=== PATIENT | male | born 1950 | race Caucasian/White ===

== ENCOUNTER 2017-02-12 08:29 | Inpatient (IN) | payer MEDICARE ==
[2017-02-12] MEDS ORDERED: MAGNESIUM SULFATE-D5W PMX 1 GM in DEXTROSE/WATER 1 100ML.BAG IVPB ONE (10:38)
--- NOTE | 2017-02-12 11:12 | XR ---
EXAMINATION TYPE: XR chest 2V DATE OF EXAM: 02/12/2017 COMPARISON: 04/26/2013 INDICATION: Tykosyn loading protocol TECHNIQUE: Frontal and lateral views of the chest are obtained. FINDINGS: The heart size is normal. The pulmonary vasculature is normal. The lungs are clear. IMPRESSION: 1. No acute pulmonary process.
[2017-02-12 11:36] LABS: Anion Gap 8 mmol/L; Blood Urea Nitrogen 21 mg/dL (9-20); Calcium 9.5 mg/dL (8.4-10.2); Carbon Dioxide 28 mmol/L (22-30); Chloride 107 mmol/L (98-107); Glucose 80 mg/dL (74-99); Magnesium 2.2 mg/dL (1.6-2.3); Non-African American GFR(MDRD) >60 (>60 ml/min/1.73 sqM); Sodium 143 mmol/L (137-145)
[2017-02-12 11:36] LABS: INR 1.1 (<1.2); Prothrombin Time 10.8 sec (9.0-12.0)
[2017-02-12 12:00] VITALS: BMI 31.8
--- NOTE | 2017-02-12 12:46 | CONS ---
This is a 66-year-old male patient of Dr. Dusty Ty and Dr. Graff who has symptomatic atrial fibrillation. He has been complaining of increasing tiredness and fatigue but in the last few months, increasing shortness of breath with exertion. He is rate controlled. His resting heart rate is about 60 beats a minute. He denies any chest discomfort. No dizziness, lightheadedness, loss of consciousness. REVIEW OF SYSTEMS: No fever, chills, rigors or cough or expectoration. No nausea or vomiting, hematuria, dysuria, stroke, seizures, skin lesions or musculoskeletal complaints. PAST HISTORY: Atrial fibrillation, dyslipidemia, hypertension, coronary artery disease, previously with reduced left ventricular ejection fraction of about 36% . 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 More recently his cardiac catheterization showed 100% mid RCA. He has mild disease in the LAD and circumflex. His left ventricular ejection fraction by coronary angiography in 2016 was about 45%. On examination, his blood pressure is 129/80 mmHg. Pulse rate is 64 beats a minute irregular. Afebrile. 97.3 degrees. Respirations are normal. Head and neck examination is normal. Heart sounds S1, S2 normal but no murmurs. No gallops. Irregular rhythm noted. Breath sounds are reduced bilaterally with no rhonchi, no crackles. Abdomen soft and nontender. Extremities warm and no edema. He has no JVD. IMPRESSION: 1. Persistent symptomatic atrial fibrillation with shortness of breath on exertion despite adequate rate control. 2. History of coronary artery disease, chronically occluded RCA, mild ischemic cardiomyopathy, ejection fraction about 45%. 3. History of VT ablation in 2006. 4. History of SVT ablation a few years back. Both ablations successful. 5. History of hypertension and dyslipidemia. SUGGEST: Admit to the hospital for initiation of dofetilide as an inpatient. His medication list was reviewed and includes Xarelto 20 mg po daily for anticoagulation, Lisinopril 10 mg daily, Isosorbide 30 mg daily, Atorvastatin 80 mg daily and Atenolol 25 mg twice daily. He is not on any medications that interact with dofetilide. his labs are reviewed, magnesium 2.2, potassium 5.0. Sodium 143. BUN 21, creatinine 1.14. His 12 lead ECG at baseline shows absolute QT interval of less than 420 milliseconds, narrow QRS. PLAN: 1. Initiate dofetilide based on creatinine clearance, this will be calculated. 2. Follow with dofetilide protocol. 3. Continue home medications. 4. Electrical cardioversion possibly on Sunday. MTDD
[2017-02-12] MEDS ORDERED: ATENOLOL 25 MG TAB PO SCH (16:00)
[2017-02-12] MEDS: PANTOPRAZOLE 40 MG TABLET PO SCH (17:52)
[2017-02-12] MEDS ORDERED: DOFETILIDE 500 MCG CAP PO ONE (18:00)
[2017-02-12] MEDS: ATORVASTATIN 80 MG TAB PO SCH (20:41)
[2017-02-12] MEDS: ATENOLOL 25 MG TAB PO SCH (21:36)
[2017-02-13] MEDS ORDERED: DOFETILIDE 500 MCG CAP PO ONE ×2 (06:00→18:00)
[2017-02-13 06:49] LABS: Anion Gap 9 mmol/L; Blood Urea Nitrogen 19 mg/dL (9-20); Calcium 8.9 mg/dL (8.4-10.2); Carbon Dioxide 24 mmol/L (22-30); Chloride 110 mmol/L (98-107); Glucose 96 mg/dL (74-99); Magnesium 2.1 mg/dL (1.6-2.3); Non-African American GFR(MDRD) >60 (>60 ml/min/1.73 sqM); Potassium 4.1 mmol/L (3.5-5.1); Sodium 143 mmol/L (137-145)
[2017-02-13] MEDS: ATENOLOL 25 MG TAB PO SCH ×2 (08:54→19:55)
[2017-02-13] MEDS: LISINOPRIL 10 MG TAB PO SCH (08:54)
[2017-02-13] MEDS: RIVAROXABAN 10 MG TAB PO SCH (08:54)
[2017-02-13] MEDS: ISOSORBIDE MONONITRATE ER 30 MG TAB.ER.24H PO SCH (08:55)
--- NOTE | 2017-02-13 09:14 | P.PN ---
Subjective Patient is doing well and he is ablating the hallways. His heart rates are in the 60s and 70s and regular. He is afebrile 97.2F he denies any undue shortness of breath he is a vague sensation in his chest but this is constant he does not have any angina like symptoms no dizziness no lightheadedness On examination her vitals are stable heart sounds are normal but irregular no murmurs or gallops, sounds are clear no rhonchi no crackles him a abdomen is soft nontender, extend is warm no edema, no JVD Impression Persistent symptomatic atrial fibrillation with shortness of breath with exertion tiredness and fatigue Coronary artery disease with chronically occluded RCA and mild ischemic cardio myopathy with class I heart failure symptoms History of ventricular tachycardia status post ablation greater than 10 years back 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 No significant increase from baseline Plan continue dofetilide 500 g twice daily and follow dofetilide protocol continue anticoagulation and if he does not convert by morning we will proceed with electrical cardioversion Objective - Vital Signs Vital signs: Vital Signs Temp 97.2 F L 02/13/17 04:00 Pulse 63 02/13/17 04:00 Resp 16 02/13/17 04:00 BP 127/72 02/13/17 04:00 Pulse Ox 95 02/13/17 04:00 Intake & Output 02/12/17 02/13/17 02/13/17 18:59 06:59 18:59 Intake Total 600 180 Balance 600 180 Weight 92.3 kg 92.6 kg Intake: Intake, IV Titration 0 Amount Magnesium Sulfate-D5w Pmx 0 1 gm In Dextrose/Water 1 100ml.bag @ 100 mls/hr IVPB ONCE ONE Rx#: [id number] Oral 600 180 Other: Voiding Method Toilet Urinal # Voids 1 - Labs CBC & Chem 7: 02/13/17 06:13 Labs: Abnormal Lab Results - Last 24 Hours (Table) 02/12/17 02/13/17 Range/Units 11:15 06:13 Chloride 110 H (98-107) mmol/L BUN 21 H (9-20) mg/dL
--- NOTE | 2017-02-13 14:43 | CDI ---
In responding to this query, please exercise your independent professional judgment. The [facility] Coding Staff and Clinical Documentation Specialists appreciate your assistance in clarifying documentation, maintaining compliance with coding guidelines, accurately documenting patients condition and capturing severity of illness. The fact that a question is asked does not imply that any particular answer is desired or expected. Communication forms are a method of clarifying documentation and are not made part of the Legal Health Record. Thank you in advance for your clarification. Last Revision, April 2015 Mariusz [place] [address] [place] [address] Documentation Clarification Form Date: 02/13/2017 2:38:00 PM From: Emily Aldrich, CCS, CCDS Admit Date: 02/12/2017 8:29:00 AM Patient Name: Pool Hernandes Visit Number: [id number] Discharge Date: Dr. Primo Stuart: Atrial fibrillation is documented in the cardiology consult and also the cardiology progress note, admitted for Tikosyn, possible cardioversion. History/Risk Factors: CAD, Ischemic cardiomyopathy with class I heart failure symptoms, V tachy status post ablations. Clinical Indicators: Heart rates in 60s - 70s, regular, c/o SOB with exertion. Treatment: Tikosyn loading, possible cardioversion if patient does not convert. In your professional opinion, can you please clarify the type of atrial fibrillation, if known? Chronic/Permanent Paroxysmal Persistent Other, please specify Unable to determine Please document in your progress notes and discharge summary in order to capture severity of illness and risk of mortality. Include clinical findings that support your diagnosis. FYI: Press F11 to launch patient chart Emily Aldrich, it would help if you would read my consult note. The answer lies in my consult note impression as well as my progress note thank you Please remove this query thank you Dr. Narciso FOSTER
[2017-02-13] MEDS: PANTOPRAZOLE 40 MG TABLET PO SCH (18:34)
[2017-02-13] MEDS: ATORVASTATIN 80 MG TAB PO SCH (19:55)
[2017-02-14] MEDS ORDERED: DOFETILIDE 500 MCG CAP PO ONE ×2 (06:00→18:00)
[2017-02-14 06:59] LABS: Anion Gap 10 mmol/L; Blood Urea Nitrogen 20 mg/dL (9-20); Calcium 9.2 mg/dL (8.4-10.2); Carbon Dioxide 23 mmol/L (22-30); Chloride 110 mmol/L (98-107); Glucose 96 mg/dL (74-99); Magnesium 2.2 mg/dL (1.6-2.3); Non-African American GFR(MDRD) >60 (>60 ml/min/1.73 sqM); Potassium 4.3 mmol/L (3.5-5.1); Sodium 143 mmol/L (137-145)
[2017-02-14] MEDS: RIVAROXABAN 10 MG TAB PO SCH (09:09)
[2017-02-14] MEDS: ATENOLOL 25 MG TAB PO SCH ×2 (09:09→19:56)
[2017-02-14] MEDS: LISINOPRIL 10 MG TAB PO SCH (09:09)
[2017-02-14] MEDS: ISOSORBIDE MONONITRATE ER 30 MG TAB.ER.24H PO SCH (09:09)
--- NOTE | 2017-02-14 11:51 | P.PN ---
Subjective Patient is doing well. He is ablating the hallways no shortness of breath no dizziness lightheadedness his atrial fibrillation is rate controlled. He is receiving dofetilide 500 g every 12 hours. QT interval is stable potassium and magnesium and renal functions are stable and within normal limits No chest discomfort dizziness lightheadedness On examination Blood pressure is normal heart rate 7 the normal range. 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 Discussed the patient 500 g of dofetilide tonightTwelve-lead ECG reviewed and QT interval of less than 440 ms absolute. I don't see this atrial fibrillation organizing on dofetilide. Renal function is stable potassium is normal magnesium is normal. We will continue dofetilide 500 g and this was discussed with his nurse Diagnosis symptomatic persistent atrial fibrillation Objective - Vital Signs Vital signs: Vital Signs Temp 96.8 F L 02/14/17 04:00 Pulse 97 02/14/17 04:00 Resp 18 02/14/17 04:00 BP 137/68 02/14/17 04:00 Pulse Ox 96 02/14/17 04:00 Intake & Output 02/13/17 02/14/17 02/14/17 18:59 06:59 18:59 Intake Total 1016 Balance 1016 Weight 90.7 kg Intake: Intake, IV Titration 0 Amount Magnesium Sulfate-D5w Pmx 0 1 gm In Dextrose/Water 1 100ml.bag @ 100 mls/hr IVPB ONCE ONE Rx#: [id number] Oral 1016 Other: Voiding Method Toilet Toilet Urinal Urinal # Voids 2 1 - Labs CBC & Chem 7: 02/14/17 06:10 Labs: Abnormal Lab Results - Last 24 Hours (Table) 02/14/17 Range/Units 06:10 Chloride 110 H (98-107) mmol/L
[2017-02-14] MEDS: PANTOPRAZOLE 40 MG TABLET PO SCH (17:54)
[2017-02-14] MEDS: ATORVASTATIN 80 MG TAB PO SCH (19:57)
[2017-02-15] MEDS: ATENOLOL 25 MG TAB PO SCH ×2 (05:59→20:49)
[2017-02-15] MEDS: ISOSORBIDE MONONITRATE ER 30 MG TAB.ER.24H PO SCH (05:59)
[2017-02-15] MEDS: RIVAROXABAN 10 MG TAB PO SCH (05:59)
[2017-02-15] MEDS: LISINOPRIL 10 MG TAB PO SCH (05:59)
[2017-02-15] MEDS ORDERED: DOFETILIDE 500 MCG CAP PO ONE (06:00)
[2017-02-15 06:41] LABS: Anion Gap 9 mmol/L; Calcium 8.9 mg/dL (8.4-10.2); Carbon Dioxide 26 mmol/L (22-30); Chloride 108 mmol/L (98-107); Glucose 103 mg/dL (74-99); Non-African American GFR(MDRD) 59 (>60 ml/min/1.73 sqM); Sodium 143 mmol/L (137-145)
[2017-02-15 06:51] LABS: Blood Urea Nitrogen 22 mg/dL (9-20); Magnesium 2.2 mg/dL (1.6-2.3); Potassium 4.7 mmol/L (3.5-5.1)
[2017-02-15] MEDS ORDERED: LACTATED RINGERS 1,000 ML IV ONE ×2 (09:44)
[2017-02-15] MEDS ORDERED: MIDAZOLAM 2 MG/2 ML VIAL IVP ONE (10:13)
[2017-02-15] MEDS ORDERED: PROPOFOL 10 MG/ML 20 ML VIAL IV ONE (10:19)
--- NOTE | 2017-02-15 10:52 | P.PCN ---
Preoperative Diagnosis: Procedure Electrical cardioversion for persistent symptomatic atrial fibrillation, on dofetilide 500 g twice daily Indication for the procedure Symptomatic persistent atrial fibrillation Ischemic cardio myopathy left ventricular ejection fraction about 45% Coronary artery disease chronically occluded RCA Procedure details Successful electrical cardioversion with 360 J biphasic shock in the AP configuration Patient converted to sinus rhythm Post cardioversion PACs and heart rates in the mid to high 40s Twelve-lead ECG postprocedure Sinus rhythm heart rate in the high 40s, absolute QT interval of 520 ms on dofetilide 500 g twice daily Plan Reduce dofetilide to 250 g twice daily Monitor QT interval Monitor heart rates on atenolol 25 mg twice daily Postoperative Diagnosis: Procedure(s) Performed: Implants: Indications for Procedure: Operative Findings: Description of Procedure:
[2017-02-15] MEDS ORDERED: MAGNESIUM SULFATE-D5W PMX 1 GM in DEXTROSE/WATER 1 100ML.BAG IVPB ONE (11:03)
[2017-02-15] MEDS: PANTOPRAZOLE 40 MG TABLET PO SCH (17:17)
[2017-02-15] MEDS: DOFETILIDE 250 MCG CAP PO SCH (17:17)
[2017-02-15] MEDS: ATORVASTATIN 80 MG TAB PO SCH (20:48)
[2017-02-16] MEDS: DOFETILIDE 250 MCG CAP PO SCH ×2 (06:28→17:58)
[2017-02-16 06:55] LABS: Anion Gap 7 mmol/L; Blood Urea Nitrogen 22 mg/dL (9-20); Calcium 8.9 mg/dL (8.4-10.2); Carbon Dioxide 27 mmol/L (22-30); Chloride 108 mmol/L (98-107); Glucose 111 mg/dL (74-99); Magnesium 2.3 mg/dL (1.6-2.3); Non-African American GFR(MDRD) 55 (>60 ml/min/1.73 sqM); Potassium 4.5 mmol/L (3.5-5.1); Sodium 142 mmol/L (137-145)
[2017-02-16] MEDS: ATENOLOL 25 MG TAB PO SCH ×2 (08:25→22:09)
[2017-02-16] MEDS: ISOSORBIDE MONONITRATE ER 30 MG TAB.ER.24H PO SCH (08:25)
[2017-02-16] MEDS: RIVAROXABAN 10 MG TAB PO SCH (08:25)
[2017-02-16] MEDS: LISINOPRIL 10 MG TAB PO SCH (08:26)
--- NOTE | 2017-02-16 14:29 | P.PN ---
Subjective Patient is doing well. No chest discomfort no dizziness lightheadedness he maintains sinus rhythm with placed telemetry ECG showed that his QT interval is less than 480 ms, absolute no arrhythmias heart rates in the 50s he is afebrile 96.9F blood pressure 120/80 143/77 mmHg normal respirations. Heart sounds are normal regular no murmurs or gallops. Breath sounds are normal no rhonchi no crackles abdomen soft nontender. Extremities warm no edema. No JVD Labs are reviewed and there is a steady increase in his creatinine. 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 several years back Mild worsening of renal function probably prerenal Plan Hold discharge today, IV fluids, increase oral fluids ad rafael., discussed with the patient, continue dofetilide 250 g twice daily EKG tomorrow labs tomorrow if renal function does not deteriorate any further he will go home tomorrow watch QT interval watch for arrhythmias Objective - Vital Signs Vital signs: Vital Signs Temp 96.9 F L 02/16/17 08:00 Pulse 49 L 02/16/17 12:00 Resp 17 02/16/17 12:00 BP 120/80 02/16/17 12:00 Pulse Ox 97 02/16/17 12:00 Intake & Output 02/15/17 02/16/17 02/16/17 18:59 06:59 18:59 Intake Total 416 180 Output Total 0 Balance 416 180 Intake: IV 0 Oral 416 180 Output: Urine 0 Other: Voiding Method Toilet Toilet Urinal Urinal # Voids 1 1 1 - Labs CBC & Chem 7: 02/16/17 06:08 Labs: Abnormal Lab Results - Last 24 Hours (Table) 02/16/17 Range/Units 06:08 Chloride 108 H (98-107) mmol/L BUN 22 H (9-20) mg/dL Creatinine 1.30 H (0.66-1.25) mg/dL Glucose 111 H (74-99) mg/dL
[2017-02-16] MEDS: PANTOPRAZOLE 40 MG TABLET PO SCH (17:30)
[2017-02-16] MEDS: ATORVASTATIN 80 MG TAB PO SCH (22:09)
[2017-02-17] MEDS: DOFETILIDE 250 MCG CAP PO SCH (05:53)
[2017-02-17 07:08] LABS: Anion Gap 7 mmol/L; Blood Urea Nitrogen 16 mg/dL (9-20); Calcium 9.1 mg/dL (8.4-10.2); Carbon Dioxide 26 mmol/L (22-30); Chloride 109 mmol/L (98-107); Glucose 108 mg/dL (74-99); Magnesium 2.1 mg/dL (1.6-2.3); Non-African American GFR(MDRD) >60 (>60 ml/min/1.73 sqM); Potassium 4.1 mmol/L (3.5-5.1); Sodium 142 mmol/L (137-145)
[2017-02-17] MEDS: LISINOPRIL 10 MG TAB PO SCH (08:48)
[2017-02-17] MEDS: ISOSORBIDE MONONITRATE ER 30 MG TAB.ER.24H PO SCH (08:48)
[2017-02-17] MEDS: ATENOLOL 25 MG TAB PO SCH (08:48)
[2017-02-17] MEDS: RIVAROXABAN 10 MG TAB PO SCH (08:48)
[2017-02-17 08:54] VITALS: BP 162/74; PULSE 53; RESP 16; TEMP 98.2
--- NOTE | 2017-02-17 09:25 | P.DS ---
Providers Date of admission: 02/12/17 08:29 Attending physician: Primo Stuart Primary care physician: [facility] Course: Patient is doing well. He is walking around the hallway no chest discomfort no dizziness lightheadedness no shortness of breath. He has not experienced any side effects from Tikosyn. Today his BUN is 16 and creatinine is 1.1 potassium 4.1 and magnesium 2.1 and creatinine and BUN both showing improvement since yesterday after IV fluids and oral fluids ad rafael. On examination he is afebrile 98.2F pulse rate is in the 50s blood pressure is 145/63 103/73 mmHg head and neck examination is normal heart sounds normal S1 normal S2 no murmurs no gallops, breath sounds are clear no rhonchi no crackles abdomen soft nontender except is warm no edema Twelve-lead ECG today shows an absolute QT interval of 480 ms There is no prolongation of the QT interval post PVC pause Impression Symptomatic persistent atrial fibrillation despite adequate rate control History of VT ablation many years back Mild ischemic cardio myopathy with a chronically occluded RCA and old inferior wall [place] History of SVT ablation a few years back, AV larissa reentry, no recurrence Incisional dofetilide as an inpatient, initially 500 g twice daily was used, QT interval 520 ms post electrical cardioversion Dose of dofetilide was reduced to 250 g twice daily. 48 hours of observation. QT interval 480 ms Renal function stable Plan discharge home today and follow-up in the office in two weeks for a 24- hour Holter monitor and a 12-lead ECG Patient Condition at Discharge: Stable Plan - Discharge Summary New Discharge Prescriptions: No Action Atenolol [Tenormin] 25 mg PO TID Rivaroxaban [Xarelto] 20 mg PO DAILY Lisinopril [Zestril] 10 mg PO DAILY Isosorbide Mononitrate ER [Imdur] 30 mg PO DAILY Atorvastatin [Lipitor] 80 mg PO HS Omeprazole [PriLOSEC] 20 mg PO AC-SUPPER Multivitamins, Thera [Multivitamin (formulary)] 1 tab PO DAILY RX: Glucosamine Sulfate 500 mg PO DAILY RX: Saw [place] 500 mg PO DAILY Fish Oil/Dha/Epa [Fish Oil 1,200 mg Fish Oil] 1 cap PO DAILY Calcium Carbonate [Calcium] 600 mg PO DAILY Discharge Medication List Atenolol [Tenormin] 25 mg PO TID 02/12/17 [History] Atorvastatin [Lipitor] 80 mg PO HS 02/12/17 [History] Calcium Carbonate [Calcium] 600 mg PO DAILY 02/12/17 [History] Fish Oil/Dha/Epa [Fish Oil 1,200 mg Fish Oil] 1 cap PO DAILY 02/12/17 [History] Isosorbide Mononitrate ER [Imdur] 30 mg PO DAILY 02/12/17 [History] Lisinopril [Zestril] 10 mg PO DAILY 02/12/17 [History] Multivitamins, Thera [Multivitamin (formulary)] 1 tab PO DAILY 02/12/17 [History ] Omeprazole [PriLOSEC] 20 mg PO AC-SUPPER 02/12/17 [History] RX: Glucosamine Sulfate 500 mg PO DAILY 02/12/17 [History] RX: [place] 500 mg PO DAILY 02/12/17 [History] Rivaroxaban [Xarelto] 20 mg PO DAILY 02/12/17 [History]
== END 2017-02-17 11:29 | disposition home or self-care (01) | DRG 310 ==
LOC: 6SEL 08:29 → MERGE 08:29
PROVIDERS: ADMIT Internal Medicine Clinical Cardiac Electrophysiology; ATTEND Internal Medicine Clinical Cardiac Electrophysiology
PROC: 5A2204Z Restoration of Cardiac Rhythm, Single (ICD-10-PCS; principal; 2017-02-15 09:29)
DX: I48.1 Persistent atrial fibrillation (principal); I11.0 Hypertensive heart disease with heart failure; I25.82 Chronic total occlusion of coronary artery; I50.9 Heart failure, unspecified; E78.5 Hyperlipidemia, unspecified; I25.10 Atherosclerotic heart disease of native coronary artery without angina pectoris; I25.2 Old myocardial infarction; I25.5 Ischemic cardiomyopathy; Z79.01 Long term (current) use of anticoagulants; Z79.899 Other long term (current) drug therapy
CPT/HCPCS: 71020; 80048; 83735; 85610; 92960; 93005

== ENCOUNTER → 2017-07-11 | Outpatient (CLI) | payer MEDICARE ==
--- NOTE | 2017-07-11 09:30 | US ---
EXAMINATION TYPE: US kidneys/renal and bladder DATE OF EXAM: 07/11/2017 COMPARISON: NONE CLINICAL HISTORY: R31.21 asymptomatic microscopic hematuria. Microscopic hematuria EXAM MEASUREMENTS: Right Kidney: 11.9 x 5.5 x 5.0 cm Left Kidney: 12.0 x 5.0 x 4.5 cm Right Kidney: anechoic area posterior mid = 3.4 x 2.8 x 3.0cm . No evidence of hydronephrosis or nep hrolithiasis. Left Kidney: no evidence of hydronephrosis . No or evidence of nephrolithiasis. Bladder: hyperechoic area posteriorly = 1.5 x 1.8 x 2.0cm ? Possible mass vs. Indentation from prosta te Bilateral Jets seen: yes Normal Post Void Residual: no There is no evidence for hydronephrosis at this point in time. No nephrolithiasis is seen. No emily s are identified. The urinary bladder is anechoic. Bilateral ureteral jets are seen. IMPRESSION: 1. Lobulated 2 cm mass of the posterior urinary bladder wall could represent a mucosal neoplasm or no dular impression from the prostate gland. CT urogram is recommended for further evaluation. 2. Exophytic right midpole 3.4 cm cyst. 3. No evidence of hydronephrosis or nephrolithiasis within either kidney.
== END | disposition home or self-care (01) ==
LOC: RADUSWWP 07:15
PROVIDERS: ATTEND Family Medicine
DX: N32.89 Other specified disorders of bladder (principal); N28.1 Cyst of kidney, acquired
CPT/HCPCS: 76770

== ENCOUNTER 2020-01-28 13:57 | Emergency (ER) | payer MEDICARE, OTHER ==
[2020-01-28 14:03] VITALS: BP 167/109; PULSE 76; RESP 18; TEMP 98.4
--- NOTE | 2020-01-28 14:41 | ED ---
General Adult HPI - General Chief complaint: Recheck/Abnormal Lab/Rx Stated complaint: Hypertensive Time Seen by Provider: 01/28/20 14:13 Source: patient, RN notes reviewed Mode of arrival: ambulatory Limitations: no limitations - History of Present Illness Initial comments: 69-year-old male with a past medical history of atrial fibrillation currently a nticoagulated, diabetes mellitus, hyperlipidemia, hypertension, [place] presents to the emergency department for hypertension. Patient reports that he was at his dentist office today when they did not want to do a procedure on him because his blood pressure was high. Patient states he has a history of hypertension. States he takes fosinopril and metoprolol for this. He sees Dr. Graff for his blood pressure. Patient reports he did take his blood pressure medications today. Patient is asymptomatic. He denies chest pain back pain abdominal pain headache visual changes. States he is feeling his normal self.Patient has no other complaints at this time including shortness of breath, chest pain, abdominal pain, nausea or vomiting, headache, or visual changes. - Related Data Home Medications Medication Instructions Recorded Confirmed Atorvastatin [Lipitor] 80 mg PO HS 02/12/17 07/16/19 Calcium Carbonate [Calcium] 600 mg PO DAILY 02/12/17 07/16/19 Fish Oil/Dha/Epa [Fish Oil 1,200 1 cap PO DAILY 02/12/17 07/16/19 mg Fish Oil] Glucosamine Sulfate 500 mg PO DAILY 02/12/17 07/16/19 Isosorbide Mononitrate ER [Imdur] 30 mg PO DAILY 02/12/17 07/16/19 Multivitamins, Thera [Multivitamin 1 tab PO DAILY 02/12/17 07/16/19 (formulary)] Omeprazole [PriLOSEC] 20 mg PO AC-SUPPER 02/12/17 07/16/19 Saw [place] 500 mg PO DAILY 02/12/17 07/16/19 lisinopriL [Zestril] 10 mg PO DAILY 02/12/17 07/16/19 Rivaroxaban [Xarelto] 20 mg PO DAILY 07/16/19 07/16/19 Allergies Allergy/AdvReac Type Severity Reaction Status Date / Time simvastatin [From Zocor] Allergy Rash/Hives Verified 01/28/20 14:03 Review of Systems ROS Statement: Those systems with pertinent positive or pertinent negative responses have been documented in the HPI. ROS Other: All systems not noted in ROS Statement are negative. Past Medical History Past Medical History: Atrial Fibrillation, Diabetes Mellitus, GERD/Reflux, Hyperlipidemia, Hypertension, Myocardial Infarction ([place]), Prostate Disorder Additional Past Medical History / Comment(s): DONNA LUKE Last Myocardial Infarction Date:: unknown History of Any Multi-Drug Resistant Organisms: None Reported Past Surgical History: Cardiac Ablation, Heart Catheterization, Joint Replacement Additional Past Surgical History / Comment(s): left knee and right hip Past Anesthesia/Blood Transfusion Reactions: No Reported Reaction Past Psychological History: No Psychological Hx Reported Smoking Status: Current every day smoker Past Alcohol Use History: Occasional Past Drug Use History: None Reported - Past Family History Mother Family Medical History: Cancer Additional Family Medical History / Comment(s): COLON Father Family Medical History: Congestive Heart Failure (CHF) General Exam Limitations: no limitations General appearance: alert, in no apparent distress Head exam: Present: atraumatic, normocephalic, normal inspection Eye exam: Present: normal appearance, PERRL, EOMI. Absent: scleral icterus, conjunctival injection, periorbital swelling ENT exam: Present: normal exam, mucous membranes moist Neck exam: Present: normal inspection. Absent: tenderness, meningismus, lymphadenopathy Respiratory exam: Present: normal lung sounds bilaterally. Absent: respiratory distress, wheezes, rales, rhonchi, stridor Cardiovascular Exam: Present: regular rate, normal rhythm, normal heart sounds. Absent: systolic murmur, diastolic murmur, rubs, gallop, clicks GI/Abdominal exam: Present: soft, normal bowel sounds. Absent: distended, tenderness, guarding, rebound, rigid Course Vital Signs 01/28/20 13:59 Temperature 98.4 F Pulse Rate 76 Respiratory 18 Rate Blood Pressure 167/109 O2 Sat by Pulse 97 Oximetry Medical Decision Making - Medical Decision Making Vitals are stable. Blood pressure is 167/109. I discussed patient is asymptomatic. Dr. Atkins did also evaluate patient. 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 I did discuss taking his blood pressure once per day and making a log for Dr. Graff. Patient is in agreement with this. He will return for any worsening symptoms which were discussed in depth with him. Disposition Clinical Impression: Hypertension Disposition: HOME SELF-CARE Condition: Good Instructions (If sedation given, give patient instructions): Hypertension (ED) Additional Instructions: please call Dr. Graff today to schedule an appointment for your high blood pressure. please keep a log over the next several days of your blood pressure once per day at the same time. if you develop any symptoms such as chest pain, abdominal pain, headache return immediately to the emergency room. Is patient prescribed a controlled substance at d/c from ED?: No Referrals: [facility],Clinic [Primary Care Provider] - 1-2 days Marshall Graff MD [STAFF PHYSICIAN] - 1-2 days Time of Disposition: 14:42
== END 2020-01-28 15:03 | disposition home or self-care (01) ==
LOC: EC 13:57
DX: I10 Essential (primary) hypertension (principal); I48.91 Unspecified atrial fibrillation; E11.9 Type 2 diabetes mellitus without complications; K21.9 Gastro-esophageal reflux disease without esophagitis; E78.5 Hyperlipidemia, unspecified; I25.2 Old myocardial infarction; F17.200 Nicotine dependence, unspecified, uncomplicated; Z79.01 Long term (current) use of anticoagulants; Z79.84 Long term (current) use of oral hypoglycemic drugs; Z79.899 Other long term (current) drug therapy; Z88.8 Allergy status to other drugs, medicaments and biological substances; Z95.5 Presence of coronary angioplasty implant and graft; Z96.652 Presence of left artificial knee joint; Z96.641 Presence of right artificial hip joint
CPT/HCPCS: 99283